=== PATIENT | female | born 1995 | race Caucasian/White ===

== ENCOUNTER 2021-02-07 10:19 | Emergency (ER) | payer BC, SELFPAY ==
[2021-02-07 10:26] VITALS: BP 152/89; PULSE 92; RESP 14; TEMP 36.8; O2SAT 100
--- NOTE | 2021-02-07 11:05 | ED.HA ---
HPI - Headache General Chief Complaint: Headache Stated Complaint: migraine for 4 days Time Seen by Provider: 02/07/21 10:56 Source: patient and RN notes reviewed Mode of arrival: ambulatory Limitations: no limitations History of Present Illness HPI Narrative: Patient presents today complaining of a 4-day history of migraine that is located on the left side of her head starting in the occiput and radiating to the frontal scalp. States this is similar to previous migraines and is not the worst headache she is ever experienced. History of migraines that are normally managed by her MASTIC SPRAYER. Patient has been taking ibuprofen and Fioricet without relief. Currently rates her pain 6/10. She has intermittent nausea that is currently absent. She has slight photophobia. Denies dizziness, vision changes, neck pain. MD elicited complaint: migraine Related Data Home Medications Medication Instructions Recorded Confirmed butalbital-acetaminophen 1 cap PO Q4H PRN 02/07/21 02/07/21 sertraline [Zoloft] 50 mg PO DAILY 02/07/21 02/07/21 Allergies Allergy/AdvReac Type Severity Reaction Status Date / Time amoxicillin [From Augmentin] Allergy Hives Verified 02/07/21 10:37 clavulanic acid Allergy Hives Verified 02/07/21 10:37 [From Augmentin] Penicillins Allergy Hives Verified 02/07/21 10:37 CONTROLLED STIMULANTS Allergy Palpitation Uncoded 02/07/21 10:37 s Review of Systems Review of Systems: CONSTITUTIONAL: Denies body aches, fever, chills, or sweats. EYES: Denies visual changes, redness, or discharge.+ Slight photophobia ENT: Denies rhinorrhea, congestion, sore throat, or otalgia. CARDIOVASCULAR: Denies chest pain, palpitations, or edema. RESPIRATORY: Denies cough or dyspnea. GASTROINTESTINAL: Denies abdominal pain, nausea, vomiting, or diarrhea. GENITOURINARY: Denies dysuria or hematuria. SKIN: Denies rash, itching, or wounds. MUSCULOSKELETAL: Denies back pain, joint pain, or myalgia. NEUROLOGIC: Denies numbness, tingling, or weakness.+ Headache PSYCH: Denies depression or anxiety. [facility] Past Medical History Medical History (Updated 02/07/21 @ 12:00 by Irasema Mendez, CARDING UTILITY TENDER, ) Migraines Comments At time of signature, I have reviewed and agree with nursing past medical, surgical, social and family history unless otherwise noted. Please see nursing chart for further information. There is no relevant family history pertinent to the presenting complaint Exam Narrative: GENERAL: Well-appearing, well-nourished, and in no acute distress. No pain distress noted. HEAD: Normocephalic, atraumatic. EYES: EOMI. PERRL. No redness or drainage. Conjunctivae normal. ENT: Mucous membranes pink and moist. NECK: Normal AROM. Supple. No lymphadenopathy. CHEST: No respiratory distress. Clear to auscultation. HEART: Regular rate and rhythm. No murmur appreciated. Normal peripheral pulses. ABDOMEN: Soft, nontender, nondistended, normal active bowel sounds. MUSCULOSKELETAL: No bony tenderness. EXTREMITIES: Normal range of motion. No edema. SKIN: Warm, dry, no rash. Capillary refill normal. Normal skin turgor. NEURO: No focal deficits. Alert and oriented x3. Gait steady. PSYCH: Normal affect. No signs of depression or anxiety. Course Course Emergency Course: 1130- Pain decreased to 4/10 after toradol and benadryl. 1200- Pain now 3/10. Vital Signs Vital signs: Vital Signs Temperature 98.3 F 02/07/21 10:26 Pulse Rate 92 02/07/21 10:26 Respiratory Rate 14 02/07/21 10:26 Blood Pressure 152/89 H 02/07/21 10:26 Pulse Oximetry 100 02/07/21 10:26 Temperature 98.3 F 02/07/21 10:26 Pulse Rate 92 02/07/21 10:26 Respiratory Rate 14 02/07/21 10:26 Blood Pressure 152/89 H 02/07/21 10:26 Pulse Oximetry 100 02/07/21 10:26 Reviewed. Pt has been instructed to follow up with her PCP regarding her elevated blood pressure today. MDM - Headache Differential Diagnosis Differential diagnosi
[2021-02-07] MEDS: diphenhydrAMINE HCl INJ 50 MG/ML VIAL IM (11:09)
[2021-02-07] MEDS: KETOROLAC (*BKC) 60 MG/2 ML VIAL IM (11:09)
== END 2021-02-07 12:10 | disposition home or self-care (01) ==
PROVIDERS: Emergency Provider Nurse Practitioner
DX: G43.911 Migraine, unspecified, intractable, with status migrainosus (principal); F41.9 Anxiety disorder, unspecified
CPT/HCPCS: 96372; 99214; G0463; J1200; J1885